=== PATIENT | male | born 2000 | race Caucasian/White ===

== ENCOUNTER 2019-03-05 15:24 | Emergency (ER) | payer SELFPAY ==
[2019-03-05 15:29] VITALS: BP 139/98; PULSE 99; RESP 18; TEMP 37.2; O2SAT 97; BMI 18.2
--- NOTE | 2019-03-05 15:58 | DI.RAD.S_ITS ---
PROCEDURE: XR FINGER RT MIN 2V INDICATIONS: R index finger pain TECHNIQUE: AP hand, 2 views of the index finger(s) acquired. COMPARISON: None. FINDINGS: Bones: No displaced fractures or dislocations are identified. No suspicious osseous lesions are evident. The adjacent osseous structures of the hand are unremarkable. Soft tissues: Soft tissue swelling along the index finger is more pronounced on the distal phalanx. No unexpected radiopaque foreign bodies or soft tissue air is evident. IMPRESSION: 1. No displaced right index finger fractures. 2. Soft tissue swelling of the index finger. No foreign bodies. Dictated by: Brooks Strong M.D. on 03/05/2019 at 15:37 Approved by: Brooks Strong M.D. on 03/05/2019 at 15:43
[2019-03-05] MEDS: DOXYCYCLINE HYCLATE 100 MG TABLET PO (16:13)
[2019-03-05] MEDS: IBUPROFEN 400 MG TABLET 800 MG PO (16:14)
[2019-03-05] MEDS: ACETAMINOPHEN 325 MG TABLET 975 MG PO (16:14)
--- NOTE | 2019-03-05 16:49 | ED.SKABFB ---
HPI - Skin/Abscess/Foreign Bdy <MICHOACANO Quach - Last Filed: 03/05/19 22:13> General Chief complaint: Skin/Abscess/Foreign Body Stated complaint: INFECTION OF RIGHT HAND Time Seen by Provider: 03/05/19 15:39 Source: patient Mode of arrival: Ambulatory Limitations: no limitations History of Present Illness HPI narrative: This is a 19-year-old male, smoker, who presents to ED with significant other with chief complaint of right index finger pain, swelling and redness and also facial abscess pain and swelling which started about 10 days ago. Patient reports movement of right index finger and palpation of right side face increase the discomfort. Patient reports chills but denies fever, nausea or vomiting. Patient denies dental pain or drainage. Patient denies known injury to affected finger, bug bite. Patient reports right dominant hand. Patient states he smokes crystal meth and heroin but does not use IV drugs. Related Data Previous Rx's Medication Instructions Recorded doxycycline hyclate 100 mg PO BID 7 Days #14 cap 03/05/19 Allergies Allergy/AdvReac Type Severity Reaction Status Date / Time No Known Drug Allergies Allergy Verified 03/05/19 15:34 Review of Systems <Zaid DeniseMICHOACANO Swift - Last Filed: 03/05/19 22:13> Review of Systems Narrative: General: Denies fever, (+) chills, fatigue, malaise, sweats. HEENT: Denies sinus pain, ear pain, sore throat, difficulty swallowing, dizziness. Denies dental pain/drainge/lesions, dysphagia, trismus. Respiratory: Denies dyspnea, cough, wheezing, hemoptysis, sputum. Cardiovascular: Denies chest pain, palpitations, orthopnea, edema. Gastrointestinal: Denies nausea, vomiting, abdominal pain, diarrhea, constipation, melena. : Denies dysuria, frequency, incontinence, hematuria, urinary retention. Musculoskeletal: Reports tip of right index finger throbbing discomfort. Denies weakness, joint pain or bony pain. Skin: See HPI Neurologic: Denies weakness, headache, numbness, change in speech, confusion, seizures, incoordination. Psychiatric: No concerning psychosocial issues. 12-point review of systems is negative except for those stated above. Patient History <MICHOACANO Quach - Last Filed: 03/05/19 22:13> Medical History Cleft lip and palate (Acute) Social History Smoking Status: Current every day smoker alcohol intake: current substance use type: marijuana, crack/cocaine and heroin Smoking Status: Current every day smoker tobacco type: cigarettes alcohol intake frequency: a few times a month Alcohol type: hard liquor Substance Use Type: marijuana Exam <MICHOACANO Quach - Last Filed: 03/05/19 22:13> Narrative Exam Narrative: GEN: Alert, oriented x 3, well appearing and nourished, and in no acute distress. Head: Normal cephalic, atraumatic. No scalp or temporal tenderness, palpable mass or rash. EYES: Pupils are equal, round, and reactive to light and accommodation. Extraocular muscles are intact bilaterally. There is no subconjunctival hemorrhage, exudate and sclera non-icteric. ENT: Bilateral auditory canals and tympanic membranes clear. Hearing grossly intact. Nose without bleeding, purulent discharge or deviation. Facial sinuses nontender to palpate. Mucous membrane moist, no mucosal lesion. Throat without erythema, tonsillar hypertrophy or exudate. Uvula in midline, airway patent. Neck: Trachea in midline. No JVD, non-tender without lymphadenopathy. No masses or thyroid megaly. Supple, non-tender and no meningeal signs. CARDIAC: Normal regular rate and rhythm without murmurs, gallops, or rubs. No chest wall tenderness. No peripheral edema, cyanosis or pallor. Capillary refill is less than 2 seconds. RESPIRATORY: Lungs are clear to auscultate bilaterally. No cough, wheezes, rales, or rhonchi. No stridor, respiratory distress, increase work of breathing, or accessary muscle used. ABD: Abdomen soft, nontender and non-distended. No guarding or rebound tenderness to palpate. Bowel sounds are normal in all 4 quadrants. There is no palpable masses or organomegaly. SKIN: Warm, dry, normal color for patient. No erythema, lesions or rash over visible areas. BACK: Nontender without deformity or crepitance. No flank tenderness. NEUROLOGICAL: Alert and oriented to place, time and person. Sensation and motor function intact bilaterally. No facial droops, dysphasia. PSYCHIATRIC: Good judgement and reason, without hallucinations, abnormal affect or abnormal behaviors during the examination. Patient is not suicidal. Initial Vital Signs Initial Vital Signs: Vital Signs Temperature 98.9 F 03/05/19 15:29 Pulse Rate 99 H 03/05/19 15:29 Respiratory Rate 18 03/05/19 15:29 Blood Pressure 139/98 H 03/05/19 15:29 Pulse Oximetry 97 03/05/19 15:29 Skin General: erythema, No fluctuance, induration, warm and other (Swelling of appox. 3.5 cm) Extrem Right upper extremity: hand Details: neurosensory exam normal, tendon exam normal, tenderness (Maximum tenderness to tip of right index finger palpate) Location: of the 2nd digit Location: at the distal phalanx, vascular exam Details: radial pulse present, normal ROM of fingers (Able to flex and extend affected finger, increased pain with extension), warmth, swelling and other (Right distal/tip of index finger appears to be white/yellow); no ecchymosis, no crepitus and no puncture wound <Timoteo Concepcion DO - Last Filed: 03/06/19 08:04> Initial Vital Signs Initial Vital Signs: Vital Signs Temperature 98.9 F 03/05/19 15:29 Pulse Rate 99 H 03/05/19 15:29 Respiratory Rate 18 03/05/19 15:29 Blood Pressure 139/98 H 03/05/19 15:29 Pulse Oximetry 97 03/05/19 15:29 Procedures <MICHOACANO Quach - Last Filed: 03/05/19 22:13> Abscess I/D I&D #1: Site: upper extremity (Distal/tip of index finger) Side (if applicable): right Local Anesthetic: lidocaine 2% Amount of anesthesia used (mL): 1.5 Technique: incised with #11 blade Amount of fluid expressed (mL): 1 Irrigation: Yes Packing used?: none Course <MICHOACANO Quach - Last Filed: 03/05/19 22:13> Orders Ordered: Discontinued Medications Acetaminophen (Tylenol) 975 mg PO NOW ONE Stop: 03/05/19 15:59 Last Admin: 03/05/19 16:14 Dose: 975 mg Documented by: KDWIGHT Doxycycline Hyclate (Vibramycin) 100 mg PO NOW ONE Stop: 03/05/19 16:01 Last Admin: 03/05/19 16:13 Dose: 100 mg Documented by: ZAINAB Ibuprofen (Advil) 800 mg PO NOW ONE Stop: 03/05/19 15:59 Last Admin: 03/05/19 16:14 Dose: 800 mg Documented by: ZAINAB Lidocaine HCl (Xylocaine 2%) 2 ml SUBCUT NOW ONE Stop: 03/05/19 16:50 Vital Signs Vital signs: Vital Signs - 8 hr 03/05/19 15:29 03/05/19 17:31 Temperature 98.9 F Pulse Rate 99 H 110 H Respiratory Rate 18 16 Blood Pressure 139/98 H Blood Pressure [Right Arm] 150/102 H Pulse Oximetry 97 100 <Timoteo Concepcion DO - Last Filed: 03/06/19 08:04> Orders Ordered: Discontinued Medications Acetaminophen (Tylenol) 975 mg PO NOW ONE Stop: 03/05/19 15:59 Last Admin: 03/05/19 16:14 Dose: 975 mg Documented by: ZAINAB Doxycycline Hyclate (Vibramycin) 100 mg PO NOW ONE Stop: 03/05/19 16:01 Last Admin: 03/05/19 16:13 Dose: 100 mg Documented by: ZAINAB Ibuprofen (Advil) 800 mg PO NOW ONE Stop: 03/05/19 15:59 Last Admin: 03/05/19 16:14 Dose: 800 mg Documented by: ZAINAB Lidocaine HCl (Xylocaine 2%) 2 ml SUBCUT NOW ONE Stop: 03/05/19 16:50 Vital Signs Vital signs: Vital Signs - 8 hr 03/05/19 15:29 03/05/19 17:31 Temperature 98.9 F Pulse Rate 99 H 110 H Respiratory Rate 18 16 Blood Pressure 139/98 H Blood Pressure [Right Arm] 150/102 H Pulse Oximetry 97 100 MDM - Skin/Abscess/Foreign Bdy <MICHOACANO Quach - Last Filed: 03/05/19 22:13> Differential Diagnosis Differential diagnosis: Likely abscess of skin or subcutaneous tissue and cellulitis Medical Records Attestation: I reviewed the patient's medical records. Lab Data Attestation: I reviewed the patient's lab results. Imaging Data XR-Finger R index: Radiologist's Impression: [address] [address] XRay Report Signed Patient: Zeinab Benavidez EMR#: [id number] : 2000Acct:[id number] Age/Sex: 19 / MDate of Service: 03/05/19 Loc: ED Accession Number: [id number] Procedure: XR finger RT min 2V Ordering Provider: Zaid Saucedo PROCEDURE: XR FINGER RT MIN 2V INDICATIONS: R index finger pain TECHNIQUE: AP hand, 2 views of the index finger(s) acquired. COMPARISON: None. FINDINGS: Bones: No displaced fractures or dislocations are identified. No suspicious osseous lesions are evident. The adjacent osseous structures of the hand are unremarkable. Soft tissues: Soft tissue swelling along the index finger is more pronounced on the distal phalanx. No unexpected radiopaque foreign bodies or soft tissue air is evident. IMPRESSION: 1. No displaced right index finger fractures. 2. Soft tissue swelling of the index finger. No foreign bodies. Dictated by: Brooks Strong M.D. on 03/05/2019 at 15:37 Approved by: Brooks Strong M.D. on 03/05/2019 at 15:43 MDM Narrative Medical decision making narrative: This is a 19 year male who presents to ED with right index finger abscess and right chin cellulitis which started about 10 days ago. Patient is afebrile and denies fever. Right finger x-ray was obtained and shows no acute findings such as fracture, foreign body but seen soft tissue swelling. Patient had mildly swollen, red and warmth to right index finger. Patient was able to flex and extend affected finger but with increased discomfort. Right index finger was I&D and obtained small amount of purulent discharge. Wound culture is pending. Right chin with erythema, edema, warmth without obvious fluctuance but induration. Normal Dental exam without oral lesions or swelling to base of mouth. Patient was medicated with doxycycline 100 mg for cellulitis/abscess prior discharged to home. Wound care instruction was provided. Patient discharged to home with doxycycline b.i.d. for 7 day course and good Rx coupon provided. Return precautions were discussed with the patient and advised to use warm pack on affected face. Patient advised to have wound recheck at the clinic or ED in 2 days. Patient was medicated with Tylenol and Motrin while in ED and advised to continue for pain at home. Patient verbalized understanding and agrees with treatment plan. Discharge Plan Departure Patient Disposition: Home Clinical Impression: Cellulitis of face, Abscess of index finger, Encounter for incision and drainage procedure Discharge Date/Time: 03/05/19 17:41 Instructions: DI for Cellulitis -- Adult, DI for Incision and Drainage of a Skin Abscess Activity Restrictions/Additional Instructions: You have been diagnosed with [ R index finger abscess with I & D procedure. Wound culture has been obtained and pending at this time. Right-sided chin cellulitis which has not been drained. You were medicated with doxycycline 1st dose while in ED.]. What to do: *Take your medications as directed. Please continue to take doxycycline twice a day for next 7 days. Please use [id number] Tylenol and/Motrin as needed for discomfort and possible mild fever. Tylenol up to 4000 mg in 24 hour period. Ibuprofen 600-800 mg 3 times a day with food. Keep your finger clean and dry. Do not soak in contaminated water. You can use warm pack on face at least 4 times a day for healing. You can soak your finger in very clean water 3-4 times a day as needed for comfort and healing as well. *Follow up with your primary care provider in 2-3 days, call for an appointment for recheck wound on her face and finger. Let them know you were seen in the ED and that we asked you to be seen in follow up. *Return to ED if you have any new, worsening, or concerning symptoms, such as [chest pain, breathing difficulty, unable to tolerate fluids or medication, high fever/chills, your symptoms not improving after you have taken antibiotic medication 2-3 doses, or any acute concerns]. Prescriptions: New doxycycline hyclate 100 mg capsule 100 mg PO BID 7 Days Qty: 14 RF: 0 Referrals: [facility] [Outside]
[2019-03-05 17:31] VITALS: BP 150/102; PULSE 110; RESP 16; O2SAT 100
== END 2019-03-05 17:41 | disposition home or self-care (01) ==
PROVIDERS: Emergency Provider Nurse Practitioner Family
DX: L03.211 Cellulitis of face (principal); L02.511 Cutaneous abscess of right hand
CPT/HCPCS: 10060; 73140; 87070; 87075; 87077; 87147; 87186; 87205; 99283; 99284

== ENCOUNTER 2019-08-24 01:17 | Emergency (ER) | payer OTHER, SELFPAY ==
[2019-08-24 01:23] VITALS: BP 142/90; PULSE 132; RESP 18; TEMP 37.2; O2SAT 100; BMI 18.2
--- NOTE | 2019-08-24 01:25 | ED_ITS ---
HPI - General Adult General Chief complaint: Medical Clearance Stated complaint: Fit for [facility] Time Seen by Provider: 08/24/19 01:24 Source: patient and police History of Present Illness HPI narrative: Patient brought here for medical clearance prior to [facility]. Tashi nt was arrested and did have injury to his mid forehead/right knee/right big toe/right scapula. Tetanus shot status unknown. Denies any loss of consciousness. Patient walked unassisted without any difficulty from outside to room 5. No ataxia and nonantalgic. Has clear speech. Awake alert oriented x4. He does admit to methamphetamine use as well as here in use. He did use methamphetamine prior to arrival. Heart rate noted likely due to methamphetamine. Denies any recent cough cold congestion fever chills. Related Data Allergies Allergy/AdvReac Type Severity Reaction Status Date / Time No Known Drug Allergies Allergy Verified 03/05/19 15:34 Review of Systems Review of Systems Narrative: GENERAL: Denies chills, fatigue, malaise, fever, sweats. HEENT: Denies sinus pain, ear pain, sore throat, difficulty swallowing, dizzine ss. RESPIRATORY: Denies dyspnea, cough, wheezing, hemoptysis, sputum. CARDIOVASCULAR: Denies chest pain, palpitations, orthopnea, edema, GASTROINTESTINAL: Denies nausea, vomiting, abdominal pain, diarrhea, constipation, melena. : Denies dysuria, frequency, incontinence, hematuria, urinary retention. MUSCULOSKELETAL: denies weakness, joint pain, or bony pain SKIN: Abrasion to forehead right knee and right scapula NEUROLOGIC: Denies weakness, headache, numbness, change in speech, confusion, seizures, incoordination. PSYCHIATRIC: No concerning psychosocial issues. ROS Unobtainable: All systems reviewed & are unremarkable except as noted in HPI and below Patient History Medical History Cleft lip and palate (Acute) Social History Smoking Status: Current every day smoker alcohol intake: current substance use type: marijuana, crack/cocaine and heroin Smoking Status: Current every day smoker tobacco type: cigarettes alcohol intake frequency: a few times a month Alcohol type: hard liquor Substance Use Type: marijuana Exam Narrative Exam Narrative: GENERAL: patient appears stated age. Well-nourished, well- developed patient, in no distress, not toxic, patient in tank top, shoes and socks off HEAD: Nontender scalp and skull, no crepitus or step-off. Normocephalic. Nickel sized abrasion midline above the nose/at forehead region, no active bleeding EYES: Pupils equal round and reactive. Extraocular motions intact. No scleral i cterus. No injection or drainage. ENT: Nose without bleeding, purulent drainage. Throat without erythema, tonsillar hypertrophy or exudate. Airway patent. Nose nontender no blood or bleeding in nares NECK: Trachea midline. Non tender, no midline tenderness or step-off. CARDIOVASCULAR: Tachycardic and regular rhythm without murmurs, gallops, or rubs. RESPIRATORY: Clear to auscultation. Breath sounds equal bilaterally. No wheezes, rales, or rhonchi. Speaks full sentences GASTROINTESTINAL: Abdomen soft, non-tender, nondistended. EXTREMITIES: No edema or joint tenderness. Small abrasion overlying right patella but full flexion extension at the knee without any difficulty. No deformity. Mild tenderness at the tip of the right great toe but skin is intact no subungual hematoma, toenail intact. Foot is warm soft because strong pedal pulse and light touch intact to foot and toes, small abrasion overlying the right scapula but no flail or crepitus BACK: Nontender without deformity or crepitance. No flank tenderness. NEURO: AOx3. SKIN: No rash or erythema of visible areas Initial Vital Signs Initial Vital Signs: Vital Signs Temperature 98.9 F 08/24/19 01:23 Pulse Rate 132 H 08/24/19 01:23 Respiratory Rate 18 08/24/19 01:23 Blood Pressure 142/90 H 08/24/19 01:23 Pulse Oximetry 100 08/24/19 01:23 Course Course Course Narrative: Patient has been cooperative, not altered, not combative Orders Ordered: Discontinued Medications Bacitracin (Bacitracin) 1 applic TOP NOW ONE Stop: 08/24/19 01:39 Last Admin: 08/24/19 01:45 Dose: 1 applic Documented by: SHAD Diphtheria/Tetanus/Acell Pertussis (Adacel) 0.5 ml IM .ONCE ONE Stop: 08/24/19 01:25 Last Admin: 08/24/19 01:44 Dose: 0.5 ml Documented by: SHAD Ibuprofen (Advil) 400 mg PO NOW ONE Stop: 08/24/19 01:25 Last Admin: 08/24/19 01:43 Dose: 400 mg Documented by: SHAD Vital Signs Vital signs: Vital Signs - 8 hr 08/24/19 01:23 Temperature 98.9 F Pulse Rate 132 H Respiratory Rate 18 Blood Pressure 142/90 H Pulse Oximetry 100 Medical Decision Making Lab Data Lab results narrative: No labs indicate this time, denies any alcohol use, no altered mental status MDM Narrative Medical decision making narrative: No imaging indicated at this time. No CT scans indicated. No altered mental status no loss of consciousness, no plain films indicate this time. Abrasions with full active range of motion and no deformity. No altered mental status Discharge Plan Departure Patient Disposition: Released, Other Clinical Impression: Abrasion, multiple sites Discharge Date/Time: 08/24/19 02:14 Instructions: DI for Abrasion Activity Restrictions/Additional Instructions: Clean wound twice a day with warm soap and water and then topical antibiotic, see family doctor in a week for recheck. Return if worse. Patient is medically cleared for release to police and [facility]
[2019-08-24] MEDS: IBUPROFEN 400 MG TABLET PO (01:43)
[2019-08-24] MEDS: TET,DIPH,PERTUSS(ACELL),VAC/PF 0.5 ML SYRINGE IM (01:44)
[2019-08-24] MEDS: BACITRACIN OINT 0.9 GM PCKT 1 APPLIC TOP (01:45)
== END 2019-08-24 02:14 | disposition home or self-care (01) ==
PROVIDERS: Emergency Provider Emergency Medicine
DX: Z02.89 Encounter for other administrative examinations (principal); S40.211A Abrasion of right shoulder, initial encounter; S80.211A Abrasion, right knee, initial encounter; Z23 Encounter for immunization
CPT/HCPCS: 90471; 99283; 90715

== ENCOUNTER 2020-01-14 04:18 | Emergency (ER) | payer OTHER, SELFPAY ==
[2020-01-14 04:28] VITALS: BP 150/103; PULSE 108; RESP 20; TEMP 36.7; O2SAT 100; BMI 18.2
[2020-01-14] MEDS: DOXYCYCLINE HYCLATE 100 MG TABLET PO (04:37)
--- NOTE | 2020-01-14 07:51 | ED_ITS ---
HPI - Skin/Abscess/Foreign Bdy General Chief complaint: Skin/Abscess/Foreign Body Stated complaint: INFECTION ON LEFT ARM Time Seen by Provider: 01/14/20 04:20 Source: patient Mode of arrival: Ambulatory Limitations: no limitations History of Present Illness HPI narrative: 19-year-old male smoker with history of alcohol abuse presents with a significant other and a chief complaint of a painful, red lesion on his l eft shoulder. He states that he has squeeze some pus out of it and it is no longer draining. He denies any systemic findings such as fever, chills nor nausea or vomiting. He occasionally smokes heroin or meth but never IVDA. complaint: abscess/boil Onset (ago): day(s) Tetanus up to date: yes Location: LUE Severity: mild Quality: aching Pain Consistency: constant Relieving factors: none Exacerbating factors: none Context: none Associated symptoms: denies other symptoms Treatments prior to arrival: attempted to drain pus at home Related Data Previous Rx's Medication Instructions Recorded doxycycline hyclate 100 mg PO BID #20 tab 01/14/20 Allergies Allergy/AdvReac Type Severity Reaction Status Date / Time No Known Drug Allergies Allergy Verified 01/14/20 04:27 Review of Systems Constitutional Constitutional: Denies chills, Denies fatigue, Denies fever(s), Denies frequent falls, Denies lethargy and Denies weakness Eyes Eyes: Denies change in vision, Denies eye discharge, Denies irritation and Denies loss of vision ENT Ears, Nose, Mouth, and Throat: Denies change in voice, Denies dizziness, Denies neck pain, Denies sore throat and Denies throat swelling Cardiovascular Cardiovascular: Denies chest pain, Denies irregular heart rhythm, Denies lightheadedness, Denies palpitations, Denies dyspnea, Denies dyspnea on exertion and Denies orthopnea Respiratory Respiratory: Denies cough, Denies dyspnea, Denies dyspnea on exertion and Denies wheezing Gastrointestinal Gastrointestinal: Denies abdominal pain, Denies change in bowel habits, Denies diarrhea, Denies nausea and Denies vomiting Musculoskeletal Musculoskeletal: Denies neck pain and Denies numbness Integumentary/Breasts Skin/Breast: Denies pruritus, Denies erythema, Denies rash and Reports wounds Neurologic Neurologic: Denies behavioral changes, Denies confusion, Denies dizziness, Denies frequent falls, Denies loss of vision, Denies numbness and Denies weakness Psychiatric Psychiatric: Denies anxiety, Denies behavioral changes, Denies confusion, Denies depression, Denies homicidal ideation and Denies suicidal ideation Endocrine Endocrine: Denies fatigue, Denies flushing and Denies palpitations Hematologic/Lymphatic Hematologic/Lymphatic: Denies easy bruising Allergic/Immunologic Allergic/Immunologic: Denies urticaria, Denies throat swelling and Denies wheezing Patient History Medical History Cleft lip and palate Social History Smoking Status: Current every day smoker alcohol intake: current substance use type: marijuana, crack/cocaine and heroin Smoking Status: Current every day smoker tobacco type: cigarettes alcohol intake frequency: a few times a month Alcohol type: hard liquor Substance Use Type: marijuana, heroin and methamphetamine Exam Narrative Exam Narrative: GEN: AOx3 and in mild distress, thin, bit unkempt EYES: Pupils are equal, round, and reactive to light and accommodation. Extraoccular muscles are intact bilaterally. There is no subconjunctival hemorrhage or exudate. CHEST: Lungs are clear to auscultation bilaterally and free of wheezes, rales, or rhonchi. Heart rate is regular rhythm, there are no murmurs, clicks, rubs, or gallops. There is no chest wall tenderness. ABD: Abdomen is soft and nontender. There is no guarding or rebound. Bowel sounds are normal in all 4 quadrants. There is no mass or organomegaly. EXT: Full painless ROM of all extremities with no loss of sensation or strength. SKIN: multiple small excoriations. Spontaneously draining, recently scabbed 2cm abscess on posterior left shoulder with minimal surrounding erythema. Otherwise warm, pink, and dry. No erythema or rash Initial Vital Signs Initial Vital Signs: Vital Signs Temperature 98.1 F 01/14/20 04:28 Pulse Rate 108 H 01/14/20 04:28 Respiratory Rate 20 01/14/20 04:28 Blood Pressure 150/103 H 01/14/20 04:28 Pulse Oximetry 100 01/14/20 04:28 Course Orders Ordered: Discontinued Medications Doxycycline Hyclate (Doxycycline Hyclate 100 Mg Tablet) 100 mg PO NOW ONE Stop: 01/14/20 04:34 Last Admin: 01/14/20 04:37 Dose: 100 mg Documented by: TERESA Vital Signs Vital signs: Vital Signs - 8 hr 01/14/20 04:28 Temperature 98.1 F Pulse Rate 108 H Respiratory Rate 20 Blood Pressure 150/103 H Pulse Oximetry 100 Discharge Plan Departure Patient Disposition: Home Clinical Impression: Abscess Cellulitis Qualifiers: Site of cellulitis: extremity Site of cellulitis of extremity: upper extremity Laterality: left Qualified Code(s): L03.114 - Cellulitis of left upper limb Instructions: DI for Cellulitis -- Adult Activity Restrictions/Additional Instructions: *You have been diagnosed with [acute superficial cutaneous abscess with minimal surrounding cellulitis of left shoulder.] *What to do: *Take medications as directed * we have included contact information for the [facility] resource line to help get you established with a primary care provider *Return to ER if you should have any new, worsening or concerning symptoms Prescriptions: New doxycycline hyclate 100 mg tablet 100 mg PO BID Qty: 20 RF: 0
== END 2020-01-14 04:42 | disposition home or self-care (01) ==
PROVIDERS: Emergency Provider Emergency Medicine
DX: L02.414 Cutaneous abscess of left upper limb (principal); L03.114 Cellulitis of left upper limb
CPT/HCPCS: 99281; 99283

== ENCOUNTER 2020-09-11 17:50 | Emergency (ER) | payer OTHER, MEDICAID, SELFPAY ==
[2020-09-11 18:25] VITALS: BP 135/90; PULSE 99; RESP 16; TEMP 37.1; O2SAT 100; BMI 19.8
[2020-09-11 18:39] LABS: Bacteria Urine None Seen; RBC Urine None Seen (0-5/HPF); WBC Urine None Seen (0-5/HPF)
[2020-09-11 18:44] LABS: Appearance Urine UA CLEAR; Bilirubin Urine UA NEGATIVE (NEGATIVE); Color Urine UA YELLOW; Glucose Urine UA NEGATIVE (Negative); Ketones Urine UA NEGATIVE (NEGATIVE); Leukocyte Esterase Urine UA NEGATIVE (NEGATIVE); Nitrite Urine UA POSITIVE (Negative); Occult Blood Urine UA NEGATIVE (Negative); Protein Urine UA NEGATIVE (Negative); Specific Gravity Urine UA 1.015 (1.000-1.035); Urobilinogen Urine UA 0.2 E.U./dL (0.2); pH Urine UA 7.5 (4.5-8.0)
[2020-09-11 18:46] LABS: UR Morphine/Opiate cutoff 300 Negative (Negative); Ur Creatinine Normal (Normal); Ur Specific Gravity Normal (Normal); Urine Amphetamines Negative (Negative); Urine Barbiturates Negative (Negative); Urine Benzodiazepines Negative (Negative); Urine Cocaine Negative (Negative); Urine MDMA Negative (Negative); Urine Methadone Negative (Negative); Urine Methamphetamines Negative (Negative); Urine Oxycodone Negative (Negative); Urine Phencyclidine Negative (Negative); Urine Tetrahydrocannabinol Negative (Negative); Urine Tricyclic Antidepressant Negative (Negative); Urine pH Normal (Normal)
[2020-09-11 18:57] LABS: Culture Indicated Urine Specimen Cultured
--- NOTE | 2020-09-11 20:35 | ED.RECABL ---
HPI - Recheck/Abnormal Lab/Rx General Chief Complaint: Recheck/Abnormal Lab/Rx Stated Complaint: Infection, Poss MRSA. Need UA Time Seen by Provider: 09/11/20 20:33 Source: patient Mode of arrival: Ambulatory Limitations: no limitations History of Present Illness HPI narrative: This is a 20-year-old male who comes to the emergency department requesting urine drug screen. He states this is requested by [facility]. Patient is requesting his results to take with him. Patient denies any other concerns or issues at this time. It was noted a UA was performed and was positive for nitrates. Patient is asymptomatic. Related Data Previous Rx's Medication Instructions Recorded doxycycline hyclate 100 mg tablet 100 mg PO BID #20 tab 01/14/20 azithromycin 1 gram oral packet 1 g PO ONCE #1 ea 02/11/20 Allergies Allergy/AdvReac Type Severity Reaction Status Date / Time No Known Drug Allergies Allergy Verified 01/14/20 04:27 Review of Systems Review of Systems ROS Unobtainable: All systems reviewed & are unremarkable except as noted in HPI and below Patient History Medical History Cleft lip and palate Social History Smoking Status: Current every day smoker alcohol intake: current substance use type: marijuana, crack/cocaine and heroin Smoking Status: Current every day smoker tobacco type: cigarettes alcohol intake frequency: a few times a month Alcohol type: hard liquor Substance Use Type: marijuana, heroin and methamphetamine Exam Narrative Exam Narrative: GENERAL: Alert and oriented x three, male in no acute distress. HEENT: Head normocephalic, atraumatic, EOMI, pupils reactive, face symmetric, moist mucous membranes NECK: Supple, full range of motion CARDIOVASCULAR: Regular rate and rhythm without murmurs, rubs or gallops. RESPIRATORY: Breath sounds equal bilaterally, no wheezes rales or rhonchi. EXTREMITIES: Normal range of motion NEUROLOGICAL: Cranial nerves II through XII grossly intact. Moving all extremities SKIN: Warm, dry, no petechiae, no rashes or lesions appreciated. Initial Vital Signs Initial Vital Signs: Vital Signs Temperature 98.7 F 09/11/20 18:25 Pulse Rate 99 H 09/11/20 18:25 Respiratory Rate 16 09/11/20 18:25 Blood Pressure 135/90 09/11/20 18:25 Pulse Oximetry 100 09/11/20 18:25 Course Orders Ordered: ED Orders 09/11/20 18:30 Urinalysis and Microscopic Stat Urine Culture Stat Urine Drug Screen, Rapid Stat Vital Signs Vital signs: Vital Signs - 8 hr 09/11/20 18:25 Temperature 98.7 F Pulse Rate 99 H Respiratory Rate 16 Blood Pressure 135/90 Pulse Oximetry 100 MDM - Recheck/Abnormal Lab/Rx Lab Data Labs: Lab Results 09/11/20 09/11/20 Range/Units 18:30 18:30 Urine Color Yellow Urine Appearance Clear Urine pH 7.5 (4.5-8.0) Ur Specific [place] 1.015 (1.000-1.035) Urine Protein Negative (Negative) Urine Glucose (UA) Negative (Negative) g/dL Urine Ketones Negative (NEGATIVE) Urine Occult Blood Negative (Negative) Urine Nitrate Positive H (Negative) Urine Bilirubin Negative (NEGATIVE) Urine Urobilinogen 0.2 (0.2) E.U./dL Ur Leukocyte Esterase Negative (NEGATIVE) Urine RBC None seen (0-5/HPF) Urine WBC None seen (0-5/HPF) Urine Bacteria None seen (None) Ur Culture Indicated? Specimen cultured U Opiates 300ng/mL cut Negative (Negative) Ur Oxycodone Screen Negative (Negative) Urine Methadone Screen Negative (Negative) Ur Barbiturates Screen Negative (Negative) U Tricyclic Antidepress Negative (Negative) Ur Phencyclidine Scrn Negative (Negative) Ur Amphetamines Screen Negative (Negative) U Methamphetamines Scrn Negative (Negative) Ur MDMA Scrn (Ecstasy) Negative (Negative) U Benzodiazepines Scrn Negative (Negative) Urine Cocaine Screen Negative (Negative) U Marijuana (THC) Screen Negative (Negative) Discharge Plan Departure Patient Disposition: Home Clinical Impression: Patient request for diagnostic testing Activity Restrictions/Additional Instructions: Your urine drug screen in included in her paperwork Your urinalysis today does show nitrates which can be associated with infection. Urine culture is pending and takes 1-2 days to typically result. If positive we would contact you by the phone number provided here when you registered. Please return for any new or worsening symptoms or if you have any questions or concerns. Prescriptions: No Action azithromycin 1 gram packet 1 g PO ONCE Qty: 1 RF: 0 doxycycline hyclate 100 mg tablet 100 mg PO BID Qty: 20 RF: 0
== END 2020-09-11 21:06 | disposition home or self-care (01) ==
PROVIDERS: Emergency Provider Emergency Medicine
DX: Z02.89 Encounter for other administrative examinations (principal)
CPT/HCPCS: 80305; 81001; 87086; 99281; 99282

== ENCOUNTER 2021-03-02 16:33 | Emergency (ER) | payer OTHER, MEDICAID, SELFPAY ==
[2021-03-02 17:10] VITALS: BP 137/87; PULSE 113; RESP 20; TEMP 36.8; O2SAT 100; BMI 18.1
[2021-03-02 17:36] LABS: COVID19 -Nasal RAPID Negative (Negative)
== END 2021-03-02 19:15 | disposition left against medical advice (07) ==
PROVIDERS: Emergency Medicine; Emergency Provider Emergency Medicine
DX: Z53.21 Procedure and treatment not carried out due to patient leaving prior to being seen by health care provider (principal); Z20.822 Contact with and (suspected) exposure to COVID-19
CPT/HCPCS: 87635; 99281; C9803

== ENCOUNTER 2021-06-08 19:11 | Emergency (ER) | payer OTHER, MEDICAID, SELFPAY ==
[2021-06-08 19:35] VITALS: BP 138/86; PULSE 97; RESP 20; TEMP 36.9; O2SAT 98; BMI 18.4
== END 2021-06-08 21:17 | disposition left against medical advice (07) ==
PROVIDERS: Emergency Provider Emergency Medicine
DX: S39.94XA Unspecified injury of external genitals, initial encounter (principal)
CPT/HCPCS: 99281

== ENCOUNTER 2021-07-31 01:19 | Emergency (ER) | payer OTHER, MEDICAID, SELFPAY ==
[2021-07-31 01:23] VITALS: BP 136/84; PULSE 107; RESP 17; TEMP 37.1; O2SAT 98; BMI 19.0
[2021-07-31] MEDS: DEXAMETHASONE 10 MG/ML VIAL IV (02:07)
[2021-07-31] MEDS: SODIUM CHLORIDE 0.9% 1,000 ML 1000 ML IV (02:07)
[2021-07-31] MEDS: CLINDAMYCIN 900 MG/50 ML PIGGYBACK 50 MG IV (02:07)
[2021-07-31] MEDS: KETOROLAC 30 MG/ML VIAL 15 MG IV (02:08)
[2021-07-31 02:14] LABS: Add Manual Diff / Slide Review NO; Basophils Absolute Auto 200 /uL (0-100); Basophils Percent Auto 1.5 % (0-2); Eosinophils Absolute Auto 300 /uL (0-450); Eosinophils Percent Auto 2.2 % (2-4); Hematocrit 33.3 % (41-53); Lymphocytes Absolute Auto 1700 /uL (1100-4500); Lymphocytes Percent Auto 14.7 % (25-40); Mean Corpuscular HGB Conc 33.2 % (30-36); Mean Corpuscular Hemoglobin 27.3 PG (26-34); Mean Corpuscular Volume 82.3 fL (80-100); Monocytes Absolute Auto 900 /uL (0-900); Monocytes Percent Auto 8.1 % (3-14); Neutrophils Absolute Auto 8500 /uL (1500-7000); Neutrophils Percent Auto 73.5 % (50-75); Platelet Count 232 X10^3/uL (150-400); Red Blood Cell Count 4.04 X10^6/uL (4.5-5.9); White Blood Cell Count 11.5 X10^3/uL (4.5-11.0)
[2021-07-31 02:26] LABS: Lactate (Lactic Acid) 1.1 mmol/L (0.7-2.1)
[2021-07-31 02:27] LABS: Alanine Aminotransferase 23 IU/L (<50); Albumin 4.4 g/dL (3.5-5.0); Albumin Globulin Ratio 1.5 (1.0-2.8); Alkaline Phosphatase 79 U/L (38-126); Aspartate Aminotransferase 28 IU/L (17-59); BUN Creatinine Ratio 28.1 (6-22); Bilirubin Total 0.2 mg/dL (0.2-1.3); Blood Urea Nitrogen 16 mg/dL (9-20); Calcium 8.8 mg/dL (8.4-10.2); Carbon Dioxide 30 mmol/L (22-32); Chloride 100 mmol/L (98-107); Estimated Glomerular Filt Rate > 60 mL/min (>60); Globulin 2.9 g/dL (1.7-4.1); Glucose 129 mg/dL (70-100); HEMOLYSIS < 15 (0-50); Potassium 3.9 mmol/L (3.4-5.1); Sodium 139 mmol/L (137-145); Total Protein 7.3 g/dL (6.3-8.2)
[2021-07-31 02:29] VITALS: PULSE 87; O2SAT 100
[2021-07-31 02:30] VITALS: PULSE 85; O2SAT 99
--- NOTE | 2021-07-31 02:44 | ED.SKABFB ---
HPI - Skin/Abscess/Foreign Bdy General Chief complaint: Skin/Abscess/Foreign Body Stated complaint: INFECTION ON RIGHT SIDE OF JAW Time Seen by Provider: 07/31/21 01:31 Source: patient Mode of arrival: Ambulatory Limitations: no limitations History of Present Illness HPI narrative: 21-year-old male smoker with history of illicit drug use presents with his significant other and a chief complaint of painful swollen scan under his chin. He smokes methamphetamine and fentanyl, and had smoked a bit just prior to coming in, he has never used IV drugs. He states that he had a painful ingrown hair underneath his chin a few days ago and he tried to pop it and did get some purulent drainage out, it has since swollen and become more painful and widespread. He does not have any fever or chills nor nausea or vomiting. He has no difficulty swallowing or opening his jaw. He has no dental pain. Related Data Previous Rx's Medication Instructions Recorded doxycycline hyclate 100 mg tablet 100 mg PO BID #20 tab 01/14/20 azithromycin 1 gram oral packet 1 g PO ONCE #1 ea 02/11/20 clindamycin HCl 300 mg capsule 300 mg PO Q6H 7 Days #28 cap 07/31/21 ketorolac 10 mg tablet 10 mg PO Q6H PRN #14 tab 07/31/21 Allergies Allergy/AdvReac Type Severity Reaction Status Date / Time No Known Drug Allergies Allergy Verified 01/14/20 04:27 Review of Systems Review of Systems Narrative: GENERAL: Denies chills, fatigue, malaise, fever, sweats. HEENT: Denies sinus pain, ear pain, sore throat, difficulty swallowing, dizziness. RESPIRATORY: Denies dyspnea, cough, wheezing, hemoptysis, sputum. CARDIOVASCULAR: Denies chest pain, palpitations, orthopnea, edema, GASTROINTESTINAL: Denies nausea, vomiting, abdominal pain, diarrhea, constipation, melena. : Denies dysuria, frequency, incontinence, hematuria, urinary retention. MUSCULOSKELETAL: denies weakness, joint pain, or bony pain SKIN: see HPI NEUROLOGIC: Denies weakness, headache, numbness, change in speech, confusion, seizures, incoordination. PSYCHIATRIC: No concerning psychosocial issues. 12 point review of systems is negative except for those stated above Patient History Medical History (Updated 07/31/21 @ 02:59 by Timoteo Concepcion DO) Cleft lip and palate Social History Smoking Status: Current every day smoker alcohol intake: current substance use type: marijuana, crack/cocaine and heroin Smoking Status: Current every day smoker tobacco type: cigarettes alcohol intake frequency: a few times a month Alcohol type: hard liquor Substance Use Type: marijuana, heroin and methamphetamine Exam Narrative Exam Narrative: GENERAL: [21] year old patient appears stated age. Well-developed patient, in mild distress. HEAD: Atraumatic. Normocephalic. EYES: Pupils equal round and reactive. Extraocular motions intact. No scleral icterus. No injection or drainage. ENT: Tender, swollen and indurated skin and submental region, more so on the right slightly erythematous, skin is crusting, no drainage or obvious fluctuance. No obvious intraoral extension Nose without bleeding, purulent drainage. Throat without erythema, tonsillar hypertrophy or exudate. Airway patent. NECK: Trachea midline. Non tender CARDIOVASCULAR: Regular rate and rhythm without murmurs, gallops, or rubs. RESPIRATORY: Clear to auscultation. Breath sounds equal bilaterally. No wheezes, rales, or rhonchi. GASTROINTESTINAL: Abdomen soft, non-tender, nondistended. EXTREMITIES: No edema or joint tenderness. BACK: Nontender without deformity or crepitance. No flank tenderness. NEURO: AOx3. SKIN: No rash or erythema of visible areas Initial Vital Signs Initial Vital Signs: Vital Signs Temperature 98.8 F 07/31/21 01:23 Pulse Rate 107 H 07/31/21 01:23 Respiratory Rate 17 07/31/21 01:23 Blood Pressure 136/84 07/31/21 01:23 Pulse Oximetry 98 07/31/21 01:23 Course Orders Ordered: ED Orders 07/31/21 01:41 Consult to [facility] - [facility] Lab Director Stat 07/31/21 02:00 Complete Blood Count AUTO DIFF Stat Comprehensive Metabolic Panel Stat Lactate (Lactic Acid) Stat 07/31/21 02:15 Blood Culture Stat Discontinued Medications Dexamethasone (Dexamethasone 10 Mg/Ml Vial) 10 mg IV NOW ONE Stop: 07/31/21 01:51 Last Admin: 07/31/21 02:07 Dose: 10 mg Documented by: ANNMARIE Sodium Chloride (Normal Saline 0.9%) 1,000 mls @ 1,000 mls/hr IV BOLUS ONE Stop: 07/31/21 02:49 Last Infusion: 07/31/21 03:09 Dose: 0 mls/hr Documented by: Admin: 07/31/21 02:07 Dose: 1,000 mls/hr Documented by: ANNMARIE Clindamycin Phosphate (Cleocin) 900 mg in 50 mls @ 50 mls/hr IV NOW ONE Stop: 07/31/21 02:50 Last Infusion: 07/31/21 03:00 Dose: 0 mls/hr Documented by: Admin: 07/31/21 02:07 Dose: 50 mls/hr Documented by: ANNMARIE Ketorolac Tromethamine (Ketorolac 30 Mg/Ml Vial) 15 mg IV NOW ONE Stop: 07/31/21 01:51 Last Admin: 07/31/21 02:08 Dose: 15 mg Documented by: ANNMARIE Vital Signs Vital signs: Vital Signs - 8 hr 07/31/21 01:23 07/31/21 02:29 07/31/21 02:30 Temperature 98.8 F Pulse Rate 107 H 87 85 Respiratory Rate 17 Blood Pressure 136/84 Pulse Oximetry 98 100 99 07/31/21 03:00 07/31/21 03:05 07/31/21 03:09 Temperature Pulse Rate 92 H 105 H 96 H Respiratory Rate 16 Blood Pressure 122/74 122/74 Pulse Oximetry 100 100 98 MDM - Skin/Abscess/Foreign Bdy Lab Data Result diagrams: 07/31/21 02:00 07/31/21 02:00 Labs: Lab Results 07/31/21 07/31/21 07/31/21 Range/Units 02:00 02:00 02:00 WBC 11.5 H (4.5-11.0) X10^3/uL RBC 4.04 L (4.5-5.9) X10^6/uL Hgb 11.0 L (13.5-17.5) g/dL Hct 33.3 L (41-53) % MCV 82.3 (80-100) fL MCH 27.3 (26-34) PG MCHC 33.2 (30-36) % RDW 14.0 (11.6-14.8) % Plt Count 232 (150-400) X10^3/uL Neut % (Auto) 73.5 (50-75) % Lymph % (Auto) 14.7 L (25-40) % [place] % (Auto) 8.1 (3-14) % Eos % (Auto) 2.2 (2-4) % Baso % (Auto) 1.5 (0-2) % Neut # (Auto) 8500 H (7949-0882) /uL Lymph # (Auto) 1700 (8560-6897) /uL [place] # (Auto) 900 (0-900) /uL Eos # (Auto) 300 (0-450) /uL Baso # (Auto) 200 H (0-100) /uL Sodium 139 (137-145) mmol/L Potassium 3.9 (3.4-5.1) mmol/L Chloride 100 (98-107) mmol/L Carbon Dioxide 30 (22-32) mmol/L BUN 16 (9-20) mg/dL Creatinine 0.57 L (0.66-1.25) mg/dL Estimated GFR > 60 (>60) mL/min BUN/Creatinine Ratio 28.1 H (6-22) Glucose 129 H (70-100) mg/dL Lactate 1.1 (0.7-2.1) mmol/L Calcium 8.8 (8.4-10.2) mg/dL Total Bilirubin 0.2 (0.2-1.3) mg/dL AST 28 (17-59) IU/L ALT 23 (<50) IU/L Alkaline Phosphatase 79 (38-126) U/L Total Protein 7.3 (6.3-8.2) g/dL Albumin 4.4 (3.5-5.0) g/dL Globulin 2.9 (1.7-4.1) g/dL Albumin/Globulin Ratio 1.5 (1.0-2.8) MDM Narrative Medical decision making narrative: Patient with reassuring history, physical exam and labs. He feels much better after her fluids, anti-inflammatories and steroids. His story would suggest this is likely an ingrown hair that had been squeezed and then developed into cellulitis, odontogenic infection considered but exam and history do would suggest against this. Regardless, clindamycin chosen as it will likely cover both infectious sources appropriately. Heart rate improved after fluids and thought to be elevated as a consequence of methamphetamine use as opposed to significant underlying infection and sepsis. We did discuss the use of advanced imaging but given his relatively localized symptoms, lack of pain on swallowing, ability to control secretions we elected to hold off for now. Patient given extensive return precautions and questions have been answered to his apparent satisfaction Discharge Plan Departure Patient Disposition: Home Clinical Impression: Cellulitis of face Instructions: DI for Cellulitis -- Adult Activity Restrictions/Additional Instructions: *You have been diagnosed with [facial cellulitis, possible small, early *What to do: *Please continue to take your regular medications as directed. [ x] New medication prescriptions sent to your pharmacy: [ [facility]] [ ] New medication written as a paper prescription [ ] No new medications given *Please follow up with your primary care provider in 2-3 days, call for an appointment. Let them know you were seen in the Emergency Department and that we ask that you be seen in follow up. We will electronically transmit a record of today's note if your PCP is in our system *If you do not have a primary care provider please contact the [facility] Resource line at [phone]. They will ask some questions about your medical history and help get you set up with a doctor in the community. *Return to Emergency Department if you should have any new, worsening or concerning symptoms, such as [fever greater than 101 F, shaking chills, worsening pain, persistent vomiting, difficulty swallowing or other bothersome symptoms] Prescriptions: New clindamycin HCl 300 mg capsule 300 mg PO Q6H 7 Days Qty: 28 0RF ketorolac 10 mg tablet 10 mg PO Q6H PRN (Reason: pain) Qty: 14 0RF No Action azithromycin 1 gram packet 1 g PO ONCE Qty: 1 0RF Rx Instructions: one dose orally today. doxycycline hyclate 100 mg tablet 100 mg PO BID Qty: 20 0RF Referrals: Miscellaneous,Doctor, MD [Primary Care Provider] - Visit Report Forms: Patient Portal/API
[2021-07-31 03:00] VITALS: PULSE 92; O2SAT 100
[2021-07-31 03:05] VITALS: BP 122/74; PULSE 105; O2SAT 100
[2021-07-31 03:09] VITALS: BP 122/74; PULSE 96; RESP 16; O2SAT 98
== END 2021-07-31 03:20 | disposition home or self-care (01) ==
PROVIDERS: Emergency Provider Emergency Medicine
DX: L03.211 Cellulitis of face (principal)
CPT/HCPCS: 36415; 80053; 83605; 85025; 87040; 96365; 96375; 99284; J1100; J1885

== ENCOUNTER 2021-10-04 12:56 | Emergency (ER) | payer OTHER, MEDICAID, SELFPAY ==
[2021-10-04] VITALS (7 sets, daily range): BP systolic 110–156; BP diastolic 62–100; PULSE 88–121; RESP 22–44; TEMP 36.8; O2SAT 100; BMI 18.2
[2021-10-04 13:24] LABS: Add Manual Diff / Slide Review NO; Basophils Absolute Auto 0 /uL (0-100); Basophils Percent Auto 0.4 % (0-2); Eosinophils Absolute Auto 100 /uL (0-450); Eosinophils Percent Auto 0.6 % (2-4); Hematocrit 42.1 % (41-53); Hemoglobin 14.5 g/dL (13.5-17.5); Lymphocytes Absolute Auto 3200 /uL (1100-4500); Lymphocytes Percent Auto 31.1 % (25-40); Mean Corpuscular HGB Conc 34.4 % (30-36); Mean Corpuscular Hemoglobin 27.6 PG (26-34); Mean Corpuscular Volume 80.4 fL (80-100); Monocytes Absolute Auto 600 /uL (0-900); Monocytes Percent Auto 5.5 % (3-14); Neutrophils Absolute Auto 6500 /uL (1500-7000); Neutrophils Percent Auto 62.4 % (50-75); Platelet Count 293 X10^3/uL (150-400); Red Blood Cell Count 5.23 X10^6/uL (4.5-5.9); Red Cell Distribution Width 13.7 % (11.6-14.8); White Blood Cell Count 10.4 X10^3/uL (4.5-11.0)
[2021-10-04 13:35] LABS: Alanine Aminotransferase 17 IU/L (<50); Albumin 5.3 g/dL (3.5-5.0); Albumin Globulin Ratio 1.4 (1.0-2.8); Alkaline Phosphatase 109 U/L (38-126); Aspartate Aminotransferase 29 IU/L (17-59); BUN Creatinine Ratio 20.8 (6-22); Bilirubin Total 0.6 mg/dL (0.2-1.3); Blood Urea Nitrogen 15 mg/dL (9-20); Calcium 10.5 mg/dL (8.4-10.2); Carbon Dioxide 23 mmol/L (22-32); Chloride 104 mmol/L (98-107); Estimated Glomerular Filt Rate > 60 mL/min (>60); Globulin 3.9 g/dL (1.7-4.1); Glucose 117 mg/dL (70-100); HEMOLYSIS < 15 (0-50); Sodium 142 mmol/L (137-145); Total Protein 9.2 g/dL (6.3-8.2)
[2021-10-04 13:42] LABS: COVID19 -Nasal RAPID Negative (Negative)
--- NOTE | 2021-10-04 14:10 | ED.AMS ---
HPI - Altered Mental Status General Chief Complaint: Toxicology Problem Stated Complaint: ? rx to Suboxone, n/v/somulance Time Seen by Provider: 10/04/21 13:05 Source: patient, EMS and other (fiance) Mode of arrival: EMS Limitations: no limitations History of Present Illness HPI narrative: This is a 21-year-old male with history of polysubstance abuse, cleft palate repair with multiple surgeries who presents today after having taken 16 mg of Suboxone at approximately 11:00 a.m. this morning. Patient was starting to have some withdrawal he states that he has been taking fentanyl pills, using methamphetamines actively, occasionally uses heroin which he states he smokes. Patient denies any currently daily medications. Patient states he is having some light withdrawal symptoms yesterday about an hour after he took the Suboxone which was to 8 mg strips which he states he was told to take both at the same time he started to develop increasing skin crawling sensation, vomiting, he is felt like he is needed to have diarrhea, hurts all over. Patient does use tobacco, he denies any alcohol at all, states he uses marijuana, smokes heroin, does use methamphetamines and takes fentanyl pills which he states are PERC 30s. Patient received the Suboxone from [facility] states he saw them 2 days ago. Related Data Previous Rx's Medication Instructions Recorded doxycycline hyclate 100 mg tablet 100 mg PO BID #20 tabs 01/14/20 azithromycin 1 gram oral packet 1 g PO ONCE #1 ea 02/11/20 ketorolac 10 mg tablet 10 mg PO Q6H PRN pain #14 tabs 07/31/21 clonidine HCl 0.1 mg tablet 0.1 mg PO BID #10 tabs 10/04/21 lorazepam 1 mg tablet 1 mg PO QID PRN withdrawl #14 tabs 10/04/21 Allergies Allergy/AdvReac Type Severity Reaction Status Date / Time No Known Drug Allergies Allergy Verified 10/04/21 13:00 Review of Systems Review of Systems ROS Unobtainable: All systems reviewed & are unremarkable except as noted in HPI and below Patient History Medical History (Updated 10/04/21 @ 15:45 by Candie Norris DO) Cleft lip and palate Social History Smoking Status: Current every day smoker alcohol intake: current substance use type: marijuana, crack/cocaine and heroin Smoking Status: Current every day smoker tobacco type: cigarettes alcohol intake frequency: a few times a month Alcohol type: hard liquor Substance Use Type: marijuana, heroin and methamphetamine Exam Narrative Exam Narrative: GEN: male, alert and oriented x 3, patient appears to be in moderate distress. Mildly diaphoretic. HEENT: Atraumatic, pupils are equal round reactive to light, extraocular movements are intact, nares are clear, TMs are clear with no fluid. Throat is clear without any exudates, erythema, tonsillar enlargement or uvular deviation HEART: Regular rate and rhythm without murmur, clicks, rubs. Pulses are equal in upper and lower extremities LUNGS:Lungs clear to auscultation, no wheezes, rales, crackles, chest moves symmetrically ABD:bowel sounds normal, soft, non-tender, no guarding, rebound, rigidity, no masses noted, no hepatosplenomegaly, patient has tried emesis by side. :No CVA tenderness MSCL: Non-tender, no muscle atrophy, muscles strength 5/5 upper and lower extremities, full range of motion NEURO:CN 2-12 intact, sensation normal Initial Vital Signs Initial Vital Signs: Vital Signs Temperature 98.2 F 10/04/21 13:00 Pulse Rate 107 H 10/04/21 13:00 Respiratory Rate 35 H 10/04/21 13:00 Blood Pressure 110/62 10/04/21 13:00 Pulse Oximetry 100 10/04/21 13:00 Oxygen Delivery Method 10/04/21 13:00 Course Orders Ordered: ED Orders 10/04/21 13:00 COVID19 -Nasal RAPID/Pre-Proc Stat 10/04/21 13:05 Consult to [facility] - [employer] Stat 10/04/21 13:18 Acetaminophen Stat Complete Blood Count AUTO DIFF Stat Comprehensive Metabolic Panel Stat Ethanol (ETOH) Stat Free T4, Direct Thyroxine Stat Salicylate Stat Thyroid Stimulating Hormone Stat 10/04/21 13:28 EKG-12 Lead Routine Discontinued Medications Clonidine HCl (Clonidine 0.1 Mg Tablet) 0.1 mg PO NOW ONE Stop: 10/04/21 14:22 Last Admin: 10/04/21 15:34 Dose: 0.1 mg Documented By: CTS Midazolam HCl (Midazolam 2 Mg/2 Ml Vial) 0.5 mg 0.01 mg/kg (0.5 mg) IV NOW ONE Stop: 10/04/21 14:21 Last Admin: 10/04/21 14:37 Dose: 0.5 mg Documented By: CTS Consultations Consultation #1: Spoke with [facility]. They state patient had elected for higher dose induction which can result in withdrawal symptoms. Patient had stated that he has not used since yesterday their recommendations were that patient's weight 36 hours before starting Suboxone from last use. Vital Signs Vital signs: Vital Signs - 8 hr 10/04/21 13:00 10/04/21 13:07 10/04/21 13:30 Temperature 98.2 F Pulse Rate 107 H 95 H 93 H Respiratory Rate 35 H 26 H 22 Blood Pressure 110/62 Pulse Oximetry 100 100 100 Oxygen Delivery Method Room Air 10/04/21 14:00 10/04/21 14:00 10/04/21 14:30 Temperature Pulse Rate 97 H Respiratory Rate 25 H Blood Pressure 156/100 H 139/94 H Pulse Oximetry 100 Oxygen Delivery Method 10/04/21 14:30 10/04/21 15:53 10/04/21 16:00 Temperature Pulse Rate 88 121 H 107 H Respiratory Rate 44 H 37 H 23 Blood Pressure Pulse Oximetry Oxygen Delivery Method MDM - Altered Mental Status Lab Data Result diagrams: 10/04/21 13:18 10/04/21 13:18 Labs: Lab Results 10/04/21 10/04/21 10/04/21 Range/Units 13:00 13:18 13:18 WBC 10.4 (4.5-11.0) X10^3/uL RBC 5.23 (4.5-5.9) X10^6/uL Hgb 14.5 (13.5-17.5) g/dL Hct 42.1 (41-53) % MCV 80.4 (80-100) fL MCH 27.6 (26-34) PG MCHC 34.4 (30-36) % RDW 13.7 (11.6-14.8) % Plt Count 293 (150-400) X10^3/uL Neut % (Auto) 62.4 (50-75) % Lymph % (Auto) 31.1 (25-40) % [place] % (Auto) 5.5 (3-14) % Eos % (Auto) 0.6 L (2-4) % Baso % (Auto) 0.4 (0-2) % Neut # (Auto) 6500 (4125-8169) /uL Lymph # (Auto) 3200 (9729-7153) /uL [place] # (Auto) 600 (0-900) /uL Eos # (Auto) 100 (0-450) /uL Baso # (Auto) 0 (0-100) /uL Sodium 142 (137-145) mmol/L Potassium 4.0 (3.4-5.1) mmol/L Chloride 104 (98-107) mmol/L Carbon Dioxide 23 (22-32) mmol/L BUN 15 (9-20) mg/dL Creatinine 0.72 (0.66-1.25) mg/dL Estimated GFR > 60 (>60) mL/min BUN/Creatinine Ratio 20.8 (6-22) Glucose 117 H (70-100) mg/dL Calcium 10.5 H (8.4-10.2) mg/dL Total Bilirubin 0.6 (0.2-1.3) mg/dL AST 29 (17-59) IU/L ALT 17 (<50) IU/L Alkaline Phosphatase 109 (38-126) U/L Total Protein 9.2 H (6.3-8.2) g/dL Albumin 5.3 H (3.5-5.0) g/dL Globulin 3.9 (1.7-4.1) g/dL Albumin/Globulin Ratio 1.4 (1.0-2.8) TSH (0.47-4.68) uIU/mL Free T4 (0.78-2.19) ng/dL Salicylates < 1.0 (<20) mg/dL Acetaminophen < 10 (10-30) ug/mL Ethyl Alcohol < 10 ( - 10) mg/dL SARS-CoV-2 (PCR) Negative (Negative) 10/04/21 Range/Units 13:18 WBC (4.5-11.0) X10^3/uL RBC (4.5-5.9) X10^6/uL Hgb (13.5-17.5) g/dL Hct (41-53) % MCV (80-100) fL MCH (26-34) PG MCHC (30-36) % RDW (11.6-14.8) % Plt Count (150-400) X10^3/uL Neut % (Auto) (50-75) % Lymph % (Auto) (25-40) % [place] % (Auto) (3-14) % Eos % (Auto) (2-4) % Baso % (Auto) (0-2) % Neut # (Auto) (3819-6253) /uL Lymph # (Auto) (0298-8543) /uL [place] # (Auto) (0-900) /uL Eos # (Auto) (0-450) /uL Baso # (Auto) (0-100) /uL Sodium (137-145) mmol/L Potassium (3.4-5.1) mmol/L Chloride (98-107) mmol/L Carbon Dioxide (22-32) mmol/L BUN (9-20) mg/dL Creatinine (0.66-1.25) mg/dL Estimated GFR (>60) mL/min BUN/Creatinine Ratio (6-22) Glucose (70-100) mg/dL Calcium (8.4-10.2) mg/dL Total Bilirubin (0.2-1.3) mg/dL AST (17-59) IU/L ALT (<50) IU/L Alkaline Phosphatase (38-126) U/L Total Protein (6.3-8.2) g/dL Albumin (3.5-5.0) g/dL Globulin (1.7-4.1) g/dL Albumin/Globulin Ratio (1.0-2.8) TSH 0.613 (0.47-4.68) uIU/mL Free T4 1.27 (0.78-2.19) ng/dL Salicylates (<20) mg/dL Acetaminophen (10-30) ug/mL Ethyl Alcohol ( - 10) mg/dL SARS-CoV-2 (PCR) (Negative) ECG Data Attestation: I personally reviewed and interpreted this ECG as follows: Interpretation: Sinus rhythm rate of 97 [place] 128 QRS 86 and QTC 457. No acute ST elevation or depression. MDM Narrative Medical decision making narrative: This is a 21-year-old male who just started Suboxone today from [facility] for narcotic use including fentanyl. Patient's was having some withdrawal symptoms he about an hour after taking his Suboxone 16 mg which he was prescribed developed significant withdrawal type symptoms. Patient received IV benzodiazepine and oral clonidine which was moderately helpful for his nausea and vomiting and symptoms. He still somewhat uncomfortable but has improved. He is able to ambulate and is otherwise medically cleared. We discussed continuing with his Suboxone prescription for withdrawal symptoms were sent to [facility] at request of him and his family and return precautions discussed. Discharge Plan Departure Patient Disposition: Home Clinical Impression: Acute narcotic withdrawal Activity Restrictions/Additional Instructions: Follow-up with [facility] for your treatment. You are likely experience some withdrawal related to your fentanyl use this will continue to improve over time. The medications prescribed today can be helpful. You can take lorazepam 1 tablet every 6 hours for withdrawal symptoms. Clonidine 1 tablet every 12 hours. Prescription sent to [facility] in [place]. Please return for fevers, persistent vomiting, passing out, altered mental status or other new or concerning symptoms. Prescriptions: New lorazepam 1 mg tablet 1 mg PO QID PRN (Reason: withdrawl) Qty: 14 0RF clonidine HCl 0.1 mg tablet 0.1 mg PO BID Qty: 10 0RF No Action azithromycin 1 gram packet 1 g PO ONCE Qty: 1 0RF Rx Instructions: one dose orally today. doxycycline hyclate 100 mg tablet 100 mg PO BID Qty: 20 0RF ketorolac 10 mg tablet 10 mg PO Q6H PRN (Reason: pain) Qty: 14 0RF Referrals: Miscellaneous,Doctor, MD [Primary Care Provider] - Visit Report Forms: Patient Portal/API
--- NOTE | 2021-10-04 14:12 | PC.NURSE ---
Pt arrived via EMS. EMS states they found him outside in the grass vomiting. pt has a h/o drug abuse and has taken suboxone in the past however it has been a while. pt went to suboxone clinic today and received 16mg suboxone. last fentanyl use was yesterday per pt. pt presents with abd pain, vomiting, and drooling. airway is intact. pt is drowsy yet answering questions appropriately and rousable to verbal. 8mg zofran given by EMS. pt connected to cardiac monitoring and her 99 and regular. RT called for EKG and labs sent. pt aware of need of urine.
[2021-10-04] MEDS: MIDAZOLAM 2 MG/2 ML VIAL 0.5 MG IV (14:37)
[2021-10-04 15:21] LABS: Free T4, Direct Thyroxine 1.27 ng/dL (0.78-2.19)
[2021-10-04] MEDS: cloNIDine 0.1 MG TABLET PO (15:34)
[2021-10-04 15:35] LABS: Thyroid Stimulating Hormone 0.613 uIU/mL (0.47-4.68)
[2021-10-04 15:41] LABS: Acetaminophen < 10 ug/mL (10-30); Ethanol (ETOH) < 10 mg/dL; Salicylate < 1.0 mg/dL (<20)
--- NOTE | 2021-10-04 15:48 | CM.SWNOTE ---
COOK SUPERVISOR/DCP Note Patient is 21 y/o male who presents to ED via EMS due to concern for reaction to rx for Suboxone. Patient endorses he was prescribed 16 mg of Suboxone after going to the [facility] 2 days ago. Patient has hx of polysubstance abuse and patient endorses to ED provider hx of THC, Heroine, Methamphetamines and Fentanyl pills. Patient presents in distress due to discomfort and pain and is unable to engage in conversation. This COOK SUPERVISOR is able to have patient sign consent form for [facility] to coordinate with [facility] provider in regards to patient's adverse reaction to Suboxone. COOK SUPERVISOR faxes consent form and calls [facility] (Ph. # [phone]). At this time, ED provider Dr. Norris is awaiting call from [facility]. Dr. Norris endorses she consulted with ED provider Dr. Blum who has experience with prescribing Suboxone, it was reported that 16 mg is a normal dose for rx but adverse responses could be due to patient's polysubstance use. Plan: When medically clear,patient to d/c to home with family and f/u with [facility] for further outpatient treatment as needed. Nidhi Keller, SIGNAL FITTER
--- NOTE | 2021-10-04 16:40 | PC.NURSE ---
pt oob abd ambulatory. steady gait. plan to DC home with PO meds to [facility] [place]. IV discontinued. given paper scrubs.
== END 2021-10-04 16:43 | disposition home or self-care (01) ==
PROVIDERS: Emergency Provider Emergency Medicine
DX: F11.23 Opioid dependence with withdrawal (principal); Z20.822 Contact with and (suspected) exposure to COVID-19
CPT/HCPCS: 80053; 80320; 80329; 84439; 84443; 85025; 87635; 93005; 93010; 96374; 99284; C9803; G0480; J2250

== ENCOUNTER 2022-08-15 03:21 | Emergency (ER) | payer OTHER, MEDICAID, SELFPAY ==
[2022-08-15 03:23] VITALS: BP 140/97; PULSE 99; RESP 18; TEMP 36.4; O2SAT 98; BMI 21.7
--- NOTE | 2022-08-15 03:31 | ED_ITS ---
HPI - General Adult General Chief complaint: Toxicology Problem Stated complaint: Altered Mental Time Seen by Provider: 08/15/22 03:26 Source: patient and EMS Mode of arrival: EMS Limitations: no limitations History of Present Illness HPI narrative: Patient is a 22-year-old male who is brought in by EMS for evaluation of altered mental status and not feeling very well and concerns that he was having a stroke. Apparently he was found walking around local neighborhood by police. He did admit to smoking fentanyl. Unsure exactly when this happened. Unsure as to exactly what his specific symptoms were. He states that he felt like half of his brain was not working. He denied any other drugs or alcohol. He ambulated into the emergency department. He denied chest pain or shortness of breath or abdominal pain. Related Data Previous Rx's Medication Instructions Recorded doxycycline hyclate 100 mg tablet 100 mg PO BID #20 tabs 01/14/20 azithromycin 1 gram oral packet 1 g PO ONCE #1 ea 02/11/20 ketorolac 10 mg tablet 10 mg PO Q6H PRN pain #14 tabs 07/31/21 clonidine HCl 0.1 mg tablet 0.1 mg PO BID #10 tabs 10/04/21 lorazepam 1 mg tablet 1 mg PO QID PRN withdrawl #14 tabs 10/04/21 Allergies Allergy/AdvReac Type Severity Reaction Status Date / Time No Known Drug Allergies Allergy Verified 10/04/21 13:00 Review of Systems Review of Systems ROS Unobtainable: All systems reviewed & are unremarkable except as noted in HPI and below Patient History Medical History (Updated 08/15/22 @ 05:25 by Oj Pena DO) Cleft lip and palate Social History Smoking Status: Current every day smoker alcohol intake: current substance use type: marijuana, crack/cocaine and heroin Smoking Status: Current every day smoker tobacco type: cigarettes alcohol intake frequency: a few times a month Alcohol type: hard liquor Substance Use Type: marijuana, heroin and methamphetamine Exam Initial Vital Signs Initial Vital Signs: Vital Signs Temperature 97.5 F L 08/15/22 03:23 Pulse Rate 99 H 08/15/22 03:23 Respiratory Rate 18 08/15/22 03:23 Blood Pressure 140/97 H 08/15/22 03:23 Pulse Oximetry 98 08/15/22 03:23 Oxygen Delivery Method Room Air 08/15/22 03:23 Const General: disheveled HENMT Head: normal to inspection and normocephalic Resp Effort & Inspection: normal respiratory effort Cardio Rate: regular rate GI Inspection: non-distended Neuro Other: Patient is ambulatory. He is clear speech. He is speaking in full sentences. He is moving all 4 extremities. Extrem Other: No gross deformities. Course Orders Ordered: ED Orders 08/15/22 03:30 Urine Drug Screen, Rapid Stat 08/15/22 03:45 Basic Metabolic Panel Stat Complete Blood Count AUTO DIFF Stat Ethanol (ETOH) Stat Vital Signs Vital signs: Vital Signs - 8 hr 08/15/22 03:23 Temperature 97.5 F L Pulse Rate 99 H Respiratory Rate 18 Blood Pressure 140/97 H Pulse Oximetry 98 Oxygen Delivery Method Room Air Medical Decision Making Lab Data Lab results reviewed: Yes I reviewed the patient's lab results. 08/15/22 03:45 08/15/22 03:45 Labs: Lab Results 08/15/22 08/15/22 08/15/22 Range/Units 03:30 03:45 03:45 WBC 9.8 (4.5-11.0) X10^3/uL RBC 4.26 L (4.5-5.9) X10^6/uL Hgb 11.7 L (13.5-17.5) g/dL Hct 35.0 L (41-53) % MCV 82.1 (80-100) fL MCH 27.5 (26-34) PG MCHC 33.5 (30-36) % RDW 13.0 (11.6-14.8) % Plt Count 300 (150-400) X10^3/uL Neut % (Auto) 71.9 (50-75) % Lymph % (Auto) 19.1 L (25-40) % [place] % (Auto) 7.6 (3-14) % Eos % (Auto) 0.8 L (2-4) % Baso % (Auto) 0.6 (0-2) % Neut # (Auto) 7100 H (4108-2312) /uL Lymph # (Auto) 1900 (4450-1256) /uL [place] # (Auto) 800 (0-900) /uL Eos # (Auto) 100 (0-450) /uL Baso # (Auto) 100 (0-100) /uL Sodium 143 (137-145) mmol/L Potassium 4.2 (3.4-5.1) mmol/L Chloride 106 (98-107) mmol/L Carbon Dioxide 31 (22-32) mmol/L BUN 15 (9-20) mg/dL Creatinine 0.69 (0.66-1.25) mg/dL Estimated GFR > 60 (>60) mL/min BUN/Creatinine Ratio 21.7 (6-22) Glucose 164 H (70-100) mg/dL Calcium 8.9 (8.4-10.2) mg/dL U Opiates 300ng/mL cut Negative (Negative) Ur Oxycodone Screen Negative (Negative) Urine Methadone Screen Negative (Negative) Ur Barbiturates Screen Negative (Negative) U Tricyclic Antidepress Negative (Negative) Ur Phencyclidine Scrn Negative (Negative) Ur Amphetamines Screen Positive H (Negative) U Methamphetamines Scrn Positive H (Negative) Ur MDMA Scrn (Ecstasy) Positive H (Negative) U Benzodiazepines Scrn Negative (Negative) Urine Cocaine Screen Negative (Negative) U Marijuana (THC) Screen Positive H (Negative) Ethyl Alcohol < 10 ( - 10) mg/dL Urine Dip Bedside Urine Glucose Negative Bedside Urine Bilirubin - Negative Bedside Urine Ketone - Negative Urine Specific [place] 1.03 Bedside Urine Occult Blood - Negative Bedside Urine pH 6.0 Bedside Urine Protein - Negative Bedside Urine Urobilinogen - Negative Bedside Urine Nitrite - Negative Bedside Urine Leukocytes - Negative Esterase Point of care testing: Urine Dip Bedside Urine Glucose Negative Bedside Urine Bilirubin - Negative Bedside Urine Ketone - Negative Urine Specific [place] 1.03 Bedside Urine Occult Blood - Negative Bedside Urine pH 6.0 Bedside Urine Protein - Negative Bedside Urine Urobilinogen - Negative Bedside Urine Nitrite - Negative Bedside Urine Leukocytes - Negative Esterase MDM Narrative Medical decision making narrative: Patient is not having a stroke. His UDS is positive for methamphetamine, amphetamines and also MDMA and marijuana. This is most likely the cause of his presenting symptoms. He is no other focal neurologic deficits. Will observe the patient here in the emergency department until he danna up and can ambulate and I anticipate discharge. Awoke the patient at approximately 0630 in the morning. He states he was feeling much better. I informed him of the positive findings in his urine drug screen. That is absolutely what was causing his symptoms that brought him in last night. Will discharge patient home. Discharge Plan Departure Patient Disposition: Home Clinical Impression: Methamphetamine abuse, MDMA abuse Instructions: DI for Substance Use Disorder Activity Restrictions/Additional Instructions: No driving for the next 24 hours or in the future if you partake in mind altering substances. Return to the emergency department for new or worsening symptoms. Prescriptions: No Action azithromycin 1 gram packet 1 g PO ONCE Qty: 1 0RF Rx Instructions: one dose orally today. doxycycline hyclate 100 mg tablet 100 mg PO BID Qty: 20 0RF lorazepam 1 mg tablet 1 mg PO QID PRN (Reason: withdrawl) Qty: 14 0RF clonidine HCl 0.1 mg tablet 0.1 mg PO BID Qty: 10 0RF ketorolac 10 mg tablet 10 mg PO Q6H PRN (Reason: pain) Qty: 14 0RF Referrals: Miscellaneous,Doctor, [Primary Care Provider] - Stand Alone Forms: Patient Portal/API
[2022-08-15 03:56] LABS: Ur Creatinine Normal (Normal); Ur Specific Gravity Normal (Normal); Urine pH Normal (Normal)
[2022-08-15 03:57] LABS: UR Morphine/Opiate cutoff 300 Negative (Negative); Urine Amphetamines Positive (Negative); Urine Barbiturates Negative (Negative); Urine Benzodiazepines Negative (Negative); Urine Cocaine Negative (Negative); Urine MDMA Positive (Negative); Urine Methadone Negative (Negative); Urine Methamphetamines Positive (Negative); Urine Oxycodone Negative (Negative); Urine Phencyclidine Negative (Negative); Urine Tetrahydrocannabinol Positive (Negative); Urine Tricyclic Antidepressant Negative (Negative)
[2022-08-15 04:09] LABS: Add Manual Diff / Slide Review NO; Basophils Absolute Auto 100 /uL (0-100); Basophils Percent Auto 0.6 % (0-2); Eosinophils Absolute Auto 100 /uL (0-450); Eosinophils Percent Auto 0.8 % (2-4); Hemoglobin 11.7 g/dL (13.5-17.5); Lymphocytes Absolute Auto 1900 /uL (1100-4500); Lymphocytes Percent Auto 19.1 % (25-40); Mean Corpuscular HGB Conc 33.5 % (30-36); Mean Corpuscular Hemoglobin 27.5 PG (26-34); Mean Corpuscular Volume 82.1 fL (80-100); Monocytes Absolute Auto 800 /uL (0-900); Monocytes Percent Auto 7.6 % (3-14); Neutrophils Absolute Auto 7100 /uL (1500-7000); Neutrophils Percent Auto 71.9 % (50-75); Platelet Count 300 X10^3/uL (150-400); Red Blood Cell Count 4.26 X10^6/uL (4.5-5.9); White Blood Cell Count 9.8 X10^3/uL (4.5-11.0)
[2022-08-15 04:14] LABS: BUN Creatinine Ratio 21.7 (6-22); Blood Urea Nitrogen 15 mg/dL (9-20); Calcium 8.9 mg/dL (8.4-10.2); Carbon Dioxide 31 mmol/L (22-32); Chloride 106 mmol/L (98-107); Estimated Glomerular Filt Rate > 60 mL/min (>60); Ethanol (ETOH) < 10 mg/dL; Glucose 164 mg/dL (70-100); HEMOLYSIS < 15 (0-50); Potassium 4.2 mmol/L (3.4-5.1); Sodium 143 mmol/L (137-145)
[2022-08-15 06:55] VITALS: BP 136/90; PULSE 102; RESP 16; O2SAT 100
== END 2022-08-15 07:01 | disposition home or self-care (01) ==
PROVIDERS: Emergency Provider Emergency Medicine
DX: F15.10 Other stimulant abuse, uncomplicated (principal)
CPT/HCPCS: 80048; 80305; 80320; 81003; 85025; 99283